=== PATIENT | female | born 1950 | race Caucasian/White ===

== ENCOUNTER 2023-11-19 16:22 | Outpatient (CLI) | payer MEDICARE, SELFPAY ==
[2023-11-19 17:35] LABS: Bilirubin Urine Neg (Negative); Blood Urine Neg (Negative); Glucose Urine UA Norm (Normal); Ketones Urine Negative (Negative); Leukocyte Esterase Urine 1+ (Negative); Nitrate Urine Negative (Negative); Protein Urine Neg (Negative); Urine Appearance Slightly Cloudy (CLEAR); Urine Color Yellow (Yellow); Urobilinogen Urine Norm (Negative); pH Urine 7 (5-7)
[2023-11-19 17:41] LABS: Add Urine Microscopic? YES; Bacteria Urine 2+ /hpf; RBC Urine 0-4 /hpf (0-2); Squamous Epithelial Cell Urine 0-4 /hpf (0-5); WBC Urine 0-4 /hpf (0-5)
== END 2023-11-19 16:23 | disposition home or self-care (01) ==
PROVIDERS: Visit Provider Family Medicine
DX: R82.998 Other abnormal findings in urine (principal)
CPT/HCPCS: 81001

== ENCOUNTER 2024-04-26 06:00 | Outpatient (RCR) | payer MEDICARE, SELFPAY | END 2024-05-09 23:59 | disposition home or self-care (01) | LOC: MPT 06:00 | PROVIDERS: Visit Provider Nurse Practitioner Family | DX: M21.371 Foot drop, right foot (principal); R26.81 Unsteadiness on feet | CPT/HCPCS: 97110; 97162 ==

== ENCOUNTER 2024-05-10 06:00 | Outpatient (RCR) | payer MEDICARE, SELFPAY | END 2024-06-09 23:59 | disposition home or self-care (01) | LOC: MPT 06:00 | PROVIDERS: Visit Provider Nurse Practitioner Family | DX: M21.371 Foot drop, right foot (principal); S22.081D Stable burst fracture of T11-T12 vertebra, subsequent encounter for fracture with routine healing; X58.XXXD Exposure to other specified factors, subsequent encounter | CPT/HCPCS: 97110; 97112; 97530; G0283 ==

== ENCOUNTER 2024-06-10 06:30 | Outpatient (RCR) | payer MEDICARE, SELFPAY | END 2024-07-07 23:59 | disposition home or self-care (01) | LOC: MPT 06:30 | PROVIDERS: Visit Provider Nurse Practitioner Family | DX: S22.081D Stable burst fracture of T11-T12 vertebra, subsequent encounter for fracture with routine healing (principal); M21.371 Foot drop, right foot; X58.XXXD Exposure to other specified factors, subsequent encounter | CPT/HCPCS: 97110; 97530 ==

== ENCOUNTER 2024-07-08 06:00 | Outpatient (RCR) | payer MEDICARE, SELFPAY | END 2024-08-07 23:59 | disposition home or self-care (01) | LOC: MPT 06:00 | PROVIDERS: Visit Provider Nurse Practitioner Family | DX: M21.371 Foot drop, right foot (principal); S22.081D Stable burst fracture of T11-T12 vertebra, subsequent encounter for fracture with routine healing; X58.XXXD Exposure to other specified factors, subsequent encounter | CPT/HCPCS: 97110; G0283 ==